=== PATIENT | male | born 1985 | race Caucasian/White ===

== ENCOUNTER 2021-01-23 00:12 | Inpatient (IN) | payer OTHER, SELFPAY ==
[~2021-01-23] VITALS: Ht 175.3 cm; Wt 122.5 kg
[2021-01-23] VITALS (8 sets, daily range): BP systolic 116–150
[~2021-01-23 00:12] MED LIST: ESCI10TA PO; FLUT1DIS3 IH; MAXAIR; SIMV10TA97 PO; ibuprofen; phentermine
[2021-01-23] MEDS ORDERED: NACL 0.9% 1,000 ML IV ONE (00:45)
[2021-01-23] MEDS ORDERED: IOHEXOL 350 mgI/mL, 150 ML INFUS..BTL IV ONE (01:09)
[2021-01-23 01:51] LABS: HEMATOCRIT 39.4 % (36-54); HEMOGLOBIN 12.5 g/dL (14.0-18.0); MEAN CORPUSCULAR HEMOGLOBIN 25 pg (27-31); MEAN CORPUSCULAR HGB CONC 32 % (32-36); MEAN CORPUSCULAR VOLUME 79 fL (79.0-98.0); RED BLOOD CELL COUNT(AUTO) 5.02 MIL/uL (4.2-6.2); RED CELL DISTRIBUTION WIDTH 16.3 % (9.0-15.0); WHITE BLOOD COUNT (AUTO) 21.9 K/uL (4.8-10.8)
[2021-01-23 01:52] LABS: BASOPHILS % (AUTO) 0.3 % (0.0-2.0); EOSINOPHILS % (AUTO) 0.1 % (0.0-4.0); LYMPHOCYTES # (AUTO) 1.1 K/uL (1.0-5.5); MONOCYTES # (AUTO) 1.8 K/uL (0.0-1.0); MONOCYTES % (AUTO) 8.4 % (1.7-9.3); NEUTROPHILS # (AUTO) 18.9 K/uL (1.8-7.7); NEUTROPHILS % (AUTO) 86.2 % (40.0-70.0); PLATELET COUNT (AUTO) 461 K/uL (130-430)
[2021-01-23 01:54] LABS: BASOPHILS # (AUTO) 0.1 K/uL (0.0-0.2)
[2021-01-23] MEDS ORDERED: PIPERACILLIN/TAZO 3.375 GM in NS 50 ML IV ONE (02:00)
[2021-01-23] MEDS ORDERED: NACL 0.9% 2,000 ML IV ONE (02:00)
[2021-01-23] MEDS ORDERED: PIPERACILLIN/TAZOBACTAM 3.375 GM/VIAL (ZOSYN) IV ONE (02:02)
[2021-01-23] MEDS ORDERED: MORPHINE 2 MG/ML INJ. SYRINGE IVP PRN ×3 (02:30→07:45)
[2021-01-23] MEDS ORDERED: LIP20 PO (02:41)
[2021-01-23] MEDS ORDERED: OMEP20CA15 PO (02:41)
[2021-01-23] MEDS ORDERED: ESCI10TA PO (02:41)
[2021-01-23] MEDS ORDERED: ALOG25TA PO (02:41)
[2021-01-23] MEDS ORDERED: MOME13HF2 INH (02:41)
[2021-01-23] MEDS ORDERED: METF-518 PO (02:41)
[2021-01-23] MEDS ORDERED: LOSA50TA3 PO (02:41)
[2021-01-23 02:54] LABS: INR 1.1 (0.80-1.20); PROTHROMBIN TIME 11.2 SECS (9.5-12.5)
[2021-01-23 03:14] LABS: POTASSIUM 3.5 mmol/L (3.5-5.1)
[2021-01-23 03:15] LABS: CALCIUM 9.6 mg/dL (8.4-11.0); CREATININE 0.96 mg/dL (0.55-1.30); TOTAL BILIRUBIN 1.9 mg/dL (0.0-1.0)
[2021-01-23 03:16] LABS: ALBUMIN 3.6 g/dL (3.4-4.8)
[2021-01-23] MEDS: D5NS 1,000 ML IV SCH ×3 (03:27→17:04)
[2021-01-23] MEDS ORDERED: MUPIROCIN 2% TOPICAL OINTMENT 22 GM NS PRN (07:45)
[2021-01-23] MEDS ORDERED: NON-FORMULARY MEDICATION (Mometasone/Formoterol* (Dulera 100 Mcg/5 Mcg Inhaler*) 2 PUFF) INH PRN (07:45)
[2021-01-23] MEDS ORDERED: ONDANSETRON HCL 4 MG/2 ML VIAL IVP PRN (07:45)
[2021-01-23] MEDS ORDERED: POTASSIUM CHLORIDE 20 MEQ TAB.PRT.SR PO PRN (07:45)
[2021-01-23] MEDS ORDERED: DEXTROSE 50% JECT 50 ML DISP.SYRIN IVP PRN (07:45)
[2021-01-23] MEDS ORDERED: INSULIN LISPRO SLIDING SCALE 100 UNITS/ML VIAL (humaLOG) SUBCUT PRN (07:45)
[2021-01-23] MEDS ORDERED: NALOXONE HCL 0.4 MG/ML AMP (NARCAN) IVP PRN ×2 (07:45)
[2021-01-23] MEDS ORDERED: ACETAMINOPHEN 325 MG TABLET PO PRN ×2 (07:45→09:30)
[2021-01-23] MEDS ORDERED: MAGNESIUM SULFATE 50 ML IV PRN (07:45)
[2021-01-23] MEDS ORDERED: ZOLPIDEM TARTRATE 5 MG TABLET PO PRN (07:45)
[2021-01-23] MEDS ORDERED: LORazepam 2 MG/ML VIAL IVP PRN (07:45)
[2021-01-23] MEDS ORDERED: DOCUSATE SODIUM 100 MG CAPSULE PO PRN (07:45)
[2021-01-23] MEDS ORDERED: FLUTICASONE 250 mCg/SALMETEROL 50 mCg DISKUS W.DEV IH SCH (09:00)
[2021-01-23] MEDS ORDERED: CITALOPRAM HYDROBROMIDE 20 MG TABLET PO ONE (09:45)
[2021-01-23] MEDS ORDERED: LOSARTAN POTASSIUM 50 MG TABLET (COZAAR) PO ONE (09:45)
[2021-01-23] MEDS: PIPERACILLIN/TAZO 3.375/DEX-IS 50 ML IV SCH ×3 (10:19→17:04)
[2021-01-23] MEDS: ALBUTEROL SULFATE 0.083% 2.5 MG/3 ML VIAL.NEB INH SCH ×2 (14:08→20:08)
[2021-01-23] MEDS: BUDESONIDE 0.5 MG/2 ML AMPUL.NEB INH SCH (20:08)
[2021-01-24] VITALS: BP_SYST 109
[2021-01-24] MEDS ORDERED: KETOROLAC TROMETHAMINE 30 MG VIAL IVP PRN
[2021-01-24] MEDS ORDERED: HYDROmorphone 2 MG/ML VIAL IVP PRN
[2021-01-24] MEDS ORDERED: ONDANSETRON HCL 4 MG/2 ML VIAL IVP PRN
[2021-01-24] MEDS ORDERED: HYDROmorphone 1 MG/ML INJ. CARTRIDGE IVP PRN
[2021-01-24] MEDS ORDERED: LR 1,000 ML IV SCH
[2021-01-24 01:00] VITALS: BP_SYST 111
[2021-01-24] MEDS: ALBUTEROL SULFATE 0.083% 2.5 MG/3 ML VIAL.NEB INH SCH ×3 (01:00→14:03)
[2021-01-24] MEDS: PIPERACILLIN/TAZO 3.375/DEX-IS 50 ML IV SCH ×4 (02:04→17:26)
[2021-01-24] MEDS: D5NS 1,000 ML IV SCH ×4 (02:10→18:30)
[2021-01-24 05:40] LABS: BASOPHILS # (AUTO) 0.1 K/uL (0.0-0.2); BASOPHILS % (AUTO) 0.3 % (0.0-2.0); EOSINOPHILS % (AUTO) 0.2 % (0.0-4.0); HEMATOCRIT 31.5 % (36-54); LYMPHOCYTES # (AUTO) 1.1 K/uL (1.0-5.5); LYMPHOCYTES % (AUTO) 6.2 % (20.5-51.5); MEAN CORPUSCULAR HEMOGLOBIN 25 pg (27-31); MEAN CORPUSCULAR HGB CONC 32 % (32-36); MEAN CORPUSCULAR VOLUME 78 fL (79.0-98.0); MONOCYTES # (AUTO) 1.5 K/uL (0.0-1.0); MONOCYTES % (AUTO) 8.7 % (1.7-9.3); NEUTROPHILS # (AUTO) 14.8 K/uL (1.8-7.7); NEUTROPHILS % (AUTO) 84.6 % (40.0-70.0); PLATELET COUNT (AUTO) 338 K/uL (130-430); RED BLOOD CELL COUNT(AUTO) 4.03 MIL/uL (4.2-6.2); RED CELL DISTRIBUTION WIDTH 16.9 % (9.0-15.0); WHITE BLOOD COUNT (AUTO) 17.4 K/uL (4.8-10.8)
[2021-01-24 06:50] LABS: ALBUMIN 2.4 g/dL (3.4-4.8); CALCIUM 7.9 mg/dL (8.4-11.0); POTASSIUM 3.4 mmol/L (3.5-5.1); TOTAL BILIRUBIN 1.6 mg/dL (0.0-1.0)
[2021-01-24] MEDS: BUDESONIDE 0.5 MG/2 ML AMPUL.NEB INH SCH (07:53)
[2021-01-24 08:00] VITALS: BP_SYST 118
[2021-01-24] MEDS ORDERED: HYDR-3917 PO (08:03)
[2021-01-24] MEDS: HYDROcodone/ACETAMIN 5-325 MG TAB (NORCO/ VICODIN) PO PRN ×2 (08:33→17:26)
[2021-01-24] MEDS ORDERED: CITALOPRAM HYDROBROMIDE 20 MG TABLET PO SCH (09:00)
[2021-01-24] MEDS ORDERED: LOSARTAN POTASSIUM 50 MG TABLET (COZAAR) PO SCH (09:00)
[2021-01-24 11:31] VITALS: BP_SYST 106
[2021-01-24 16:01] VITALS: BP_SYST 116
[2021-01-24 18:05] VITALS: BP_SYST 119
== END 2021-01-24 18:45 | disposition home or self-care (01) | DRG 710 ==
LOC: SED 00:12 → SMU 02:19
PROVIDERS: ADMIT General Practice; ATTEND General Practice
PROC: 0FT44ZZ Resection of Gallbladder, Percutaneous Endoscopic Approach (ICD-10-PCS; principal; 2021-01-23 21:55)
DX: A41.9 Sepsis, unspecified organism (principal); K82.A1 Gangrene of gallbladder in cholecystitis; K82.1 Hydrops of gallbladder; K80.00 Calculus of gallbladder with acute cholecystitis without obstruction; E66.9 Obesity, unspecified; E11.9 Type 2 diabetes mellitus without complications; E78.00 Pure hypercholesterolemia, unspecified; I10 Essential (primary) hypertension; J45.909 Unspecified asthma, uncomplicated; Z20.822 Contact with and (suspected) exposure to COVID-19; K21.9 Gastro-esophageal reflux disease without esophagitis; K42.9 Umbilical hernia without obstruction or gangrene; F32.A Depression, unspecified; E78.5 Hyperlipidemia, unspecified; Z68.39 Body mass index [BMI] 39.0-39.9, adult; Z79.899 Other long term (current) drug therapy
CPT/HCPCS: 36415; 71275; 76376; 80053; 82962; 83036; 83605; 83690; 83735; 84484; 85025; 85610-TC; 85730-TC; 87040-TC; 87081; 88304; 93005; 94640; 94760; 96361; 96365; 99291; C1727; J2270; J2543; J7613; J7626; Q9967

== ENCOUNTER 2021-02-01 14:50 | Emergency (ER) | payer OTHER, SELFPAY ==
[~2021-02-01] VITALS: Ht 172.7 cm; Wt 122.5 kg
[~2021-02-01 14:50] MED LIST changes: +ALOG25TA PO; +HYDR-3917 PO; +LIP20 PO; +LOSA50TA3 PO; +METF-518 PO; +MOME13HF2 INH; +OMEP20CA15 PO
--- NOTE | 2021-02-01 15:10 | NUR ---
DR SCHROEDER TO ASSESS
--- NOTE | 2021-02-01 15:20 | NUR ---
Patient to ER bed 2 to gown for evaluation. Side rails up. Report given to .BANDAR
[2021-02-01 15:26] VITALS: BP_SYST 162
--- NOTE | 2021-02-01 15:45 | NUR ---
CALM, ALERT, RESP UNL;ABORED, SKIN WARM AND DRY. DENIES CP/SOB.
[2021-02-01 16:10] LABS: BASOPHILS # (AUTO) 0.1 K/uL (0.0-0.2); BASOPHILS % (AUTO) 1.1 % (0.0-2.0); EOSINOPHILS # (AUTO) 0.1 K/uL (0.0-0.4); EOSINOPHILS % (AUTO) 1.2 % (0.0-4.0); HEMATOCRIT 34.9 % (36-54); HEMOGLOBIN 11.4 g/dL (14.0-18.0); LYMPHOCYTES # (AUTO) 2.2 K/uL (1.0-5.5); LYMPHOCYTES % (AUTO) 21.9 % (20.5-51.5); MEAN CORPUSCULAR HEMOGLOBIN 25 pg (27-31); MEAN CORPUSCULAR HGB CONC 33 % (32-36); MEAN CORPUSCULAR VOLUME 77 fL (79.0-98.0); MONOCYTES # (AUTO) 0.6 K/uL (0.0-1.0); MONOCYTES % (AUTO) 6.1 % (1.7-9.3); NEUTROPHILS # (AUTO) 6.9 K/uL (1.8-7.7); NEUTROPHILS % (AUTO) 69.7 % (40.0-70.0); PLATELET COUNT (AUTO) 615 K/uL (130-430); RED BLOOD CELL COUNT(AUTO) 4.51 MIL/uL (4.2-6.2); RED CELL DISTRIBUTION WIDTH 16.4 % (9.0-15.0); WHITE BLOOD COUNT (AUTO) 9.8 K/uL (4.8-10.8)
[2021-02-01 16:18] LABS: ANION GAP 7 (5-15); CHLORIDE 105 mmol/L (98-107); GLUCOSE 104 mg/dL (70-99); POTASSIUM 4.2 mmol/L (3.5-5.1); SODIUM SERUM 141 mmol/L (136-145); UREA NITROGEN, BLOOD 12 mg/dL (8-21)
[2021-02-01 16:24] LABS: GFR AFRICAN AMERICAN 125 mL/min (>90)
--- NOTE | 2021-02-01 17:10 | NUR ---
consent signed for cta chest
[2021-02-01] MEDS ORDERED: IOHEXOL 350 mgI/mL, 150 ML INFUS..BTL IV ONE (17:43)
--- NOTE | 2021-02-01 18:11 | NUR ---
OFF TO CTA OF CHEST
--- NOTE | 2021-02-01 19:00 | NUR ---
SITTING UP ALERT, CALM, RESP UNLABORED, SKIN WARM AND DRY.
--- NOTE | 2021-02-01 19:25 | NUR ---
assumed care of pt from [facility]
[2021-02-01 19:56] VITALS: BP_SYST 154
--- NOTE | 2021-02-01 19:57 | NUR ---
Patient given written and verbal discharge instructions and verbalizes understanding. ER MD discussed with patient the results and treatment provided. Patient in stable condition. ID arm band removed. IV catheter removed intact and dressing applied, no active bleeding. Patient educated on pain management and to follow up with PMD. Pain Scale 1/10. Opportunity for questions provided and answered. Medication side effect fact sheet provided.
== END 2021-02-01 19:57 | disposition home or self-care (01) ==
LOC: SED 14:50
DX: R55 Syncope and collapse (principal); L98.8 Other specified disorders of the skin and subcutaneous tissue; K21.9 Gastro-esophageal reflux disease without esophagitis; E78.00 Pure hypercholesterolemia, unspecified; J45.909 Unspecified asthma, uncomplicated; Z79.899 Other long term (current) drug therapy
CPT/HCPCS: 36415; 71275; 76376; 80048; 84484; 85025; 85379; 93005; 99285; Q9967